=== PATIENT | male | born 1980 | race Caucasian/White ===

== ENCOUNTER 2024-12-17 08:48 | Outpatient (CLI) | payer BC ==
[2024-12-17] MEDS ORDERED: IV NS 0.9% 250 ML IV ONE (09:22)
[2024-12-17] MEDS ORDERED: IOHEXOL-300 100 ML VIAL IV ONE (09:22)
== END 2024-12-17 23:59 | disposition home or self-care (01) ==
LOC: CT 08:48
PROVIDERS: ATTEND Family Medicine
DX: N20.0 Calculus of kidney (principal); R31.9 Hematuria, unspecified
CPT/HCPCS: 74177; J7050; Q9967

== ENCOUNTER 2025-03-16 07:43 | Outpatient (CLI) | payer BC | END 2025-03-16 23:59 | disposition home or self-care (01) | LOC: RAD 07:43 | PROVIDERS: ATTEND Urology | DX: N20.0 Calculus of kidney (principal) | CPT/HCPCS: 74018 ==